=== PATIENT | female | born 1950 | race Caucasian/White ===

== ENCOUNTER 2018-08-19 22:13 | Emergency (ER) | payer OTHER ==
[2018-08-19] MEDS ORDERED: DIPHENHYDRAMINE 50 MG/ML VIAL ONE (23:46)
[2018-08-19] MEDS ORDERED: FAMOTIDINE 20 MG/2 ML VIAL IV ONE (23:46)
[2018-08-19] MEDS ORDERED: METHYLPREDNISOLONE 125 MG INJ ONE (23:46)
--- NOTE | 2018-08-20 00:34 | ER ---
Nurse's Notes [facility] Name: Janet Dash Age: 68 yrs Sex: Female : 1950 Arrival Date: 08/19/2018 Time: 22:18 Bed 19 Private MD: Diagnosis: Acute Allergic Reaction Presentation: 08/19 22:28 Presenting complaint: Patient states: approx 1900 this evening she began itching all aa1 over. Generalized erythema noted. Denies SOB. Transition of care: patient was not received from another setting of care. Onset of symptoms was August 19, 2018 at 19:00. Risk Assessment: Do you want to hurt yourself or someone else? Patient reports no desire to harm self or others. Initial Sepsis Screen: Does the patient meet any 2 criteria? No. Patient's initial sepsis screen is negative. Does the patient have a suspected source of infection? No. Patient's initial sepsis screen is negative. Care prior to arrival: None. 22:28 Method Of Arrival: Wheelchair aa1 22:28 Acuity: FEMI 4 aa1 22:28 Note Pt reports taking Benadryl 50 mg [employer] with some relief. aa1 Triage Assessment: 22:28 General: Appears in no apparent distress. comfortable, Behavior is calm, cooperative, aa1 appropriate for age. Pain: Denies pain. Historical: - Allergies: 22:31 No Known Allergies; aa1 - Home Meds: 22:31 lisinopril-hydrochlorothiazide oral oral [Active]; aa1 - PMHx: 22:31 Hypertension; aa1 - PSHx: 22:31 foot sx; aa1 - Immunization history:: Flu vaccine is up to date. - Social history:: Smoking status: Patient/guardian denies using tobacco. - Ebola Screening: : No symptoms or risks identified at this time. Screenin:46 Abuse screen: Denies threats or abuse. Nutritional screening: No deficits noted. jd3 Tuberculosis screening: No symptoms or risk factors identified. Fall Risk Ambulatory Aid- None/Bed Rest/Nurse Assist (0 pts). Gait- Normal/Bed Rest/Wheelchair (0 pts) Mental Status- Oriented to own ability (0 pts). Total Hillman Fall Scale indicates No Risk (0-24 pts). Assessment: 22:44 General: Appears in no apparent distress. uncomfortable, Behavior is cooperative, jd3 appropriate for age, anxious. Pain: Denies pain. Neuro: Level of Consciousness is awake, alert, obeys commands, Oriented to person, place, time, situation, Appropriate for age. Cardiovascular: Denies chest pain, Capillary refill < 3 seconds Patient's skin is warm and dry. Respiratory: Airway is patent Respiratory effort is even, unlabored, Respiratory pattern is regular, symmetrical, Breath sounds are clear bilaterally. Denies shortness of breath. GI: No signs and/or symptoms were reported involving the gastrointestinal system. : No signs and/or symptoms were reported regarding the genitourinary system. EENT: No signs and/or symptoms were reported regarding the EENT system. Derm: Skin is intact, Skin is dry, Skin is normal, Skin temperature is warm Rash noted that is itchy, red, on generalized. Musculoskeletal: Circulation, motion, and sensation intact. Range of motion: intact in all extremities. 08/20 00:29 Reassessment: Patient appears in no apparent distress at this time. Patient and/or jd3 family updated on plan of care and expected duration. Pain level reassessed. Patient is alert, oriented x 3, equal unlabored respirations, skin warm/dry/pink. decrease in redness noted Patient states feeling better. 00:47 Reassessment: Patient appears in no apparent distress at this time. Patient and/or jd3 family updated on plan of care and expected duration. Pain level reassessed. Patient is alert, oriented x 3, equal unlabored respirations, skin warm/dry/pink. Patient states feeling better. Vital Signs: 08/19 22:28 BP 173 / 104; Pulse 89; Resp 18; Temp 97.8; Pulse Ox 96% on R/A; Weight 77.11 kg; aa1 Height 5 ft. 9 in. (175.26 cm); Pain 0/10; 08/20 00:29 BP 164 / 96; Pulse 65; Resp 16 S; Pulse Ox 97% on R/A; jd3 08/19 22:28 Body Mass Index 25.10 (77.11 kg, 175.26 cm) aa1 ED Course: 08/19 22:18 Patient arrived in ED. am2 22:28 Arm band placed on right wrist. aa1 22:29 Triage completed. aa1 22:41 Irvin Patterson, RN is Primary Nurse. jd3 22:46 Patient has correct armband on for positive identification. Bed in low position. Call jd3 light in reach. Side rails up X 1. Adult w/ patient. 23:18 [facility]. jr8 23:18 Ton Hill MD is Attending Physician. jr8 23:40 Inserted saline lock: 20 gauge in right antecubital area, using aseptic technique. jd3 08/20 00:46 No provider procedures requiring assistance completed. IV discontinued, intact, jd3 bleeding controlled, No redness/swelling at site. Pressure dressing applied. Administered Medications: 08/19 23:52 Drug: SOLU-Medrol 125 mg Route: IVP; Site: right antecubital; jd3 08/20 00:47 Follow up: Response: No adverse reaction jd3 08/19 23:52 Drug: Pepcid 20 mg Route: IVP; Site: right antecubital; jd3 08/20 00:47 Follow up: Response: No adverse reaction jd3 08/19 23:52 Drug: Benadryl 25 mg Route: IVP; Site: right antecubital; jd3 08/20 00:48 Follow up: Response: No adverse reaction jd3 Outcome: 00:34 Discharge ordered by MD. jr8 00:46 Discharged to home ambulatory, with family. jd3 00:46 Condition: stable 00:46 Discharge instructions given to patient, family, Instructed on discharge instructions, follow up and referral plans. medication usage, Demonstrated understanding of instructions, follow-up care, medications, Prescriptions given X 2. 00:48 Patient left the ED. jd3 Signatures: Deidre Zuniga RN RN aa1 Ze Solano PA PA jr8 Sylvia Stuart am2 Irvin Patterson RN RN jd3
--- NOTE | 2018-08-20 00:34 | EDPHYS ---
Physician Documentation [facility] Name: Janet Dash Age: 68 yrs Sex: Female : 1950 Arrival Date: 08/19/2018 Time: 22:18 Bed 19 Private MD: ED Physician Ton Hill HPI: 08/19 23:52 This 68 yrs old Female presents to ER via Wheelchair with complaints of Rash. jr8 23:52 The patient's rash thought to be caused by an unknown cause. The rash is located on the jr8 body diffusely. The rash can be described as erythematous, urticarial. Onset: The symptoms/episode began/occurred acutely, today. Associated signs and symptoms: Pertinent positives: itching. Severity of symptoms: At their worst the symptoms were moderate in the emergency department the symptoms are unchanged. Treatment given at home: Benadryl. The patient has not experienced similar symptoms in the past. The patient has not recently seen a physician. Unknown why she started to have rash tonight. No new foods, clothes, soaps, detergents, jewelry, etc... started to have erythema and urticaria. Took Benadryl with minimal relief . Historical: - Allergies: 22:31 No Known Allergies; aa1 - Home Meds: 22:31 lisinopril-hydrochlorothiazide oral oral [Active]; aa1 - PMHx: 22:31 Hypertension; aa1 - PSHx: 22:31 foot sx; aa1 - Immunization history:: Flu vaccine is up to date. - Social history:: Smoking status: Patient/guardian denies using tobacco. - Ebola Screening: : No symptoms or risks identified at this time. ROS: 08/20 00:32 Eyes: Negative for injury, pain, redness, and discharge, ENT: Negative for injury, jr8 pain, and discharge, Neck: Negative for injury, pain, and swelling, Cardiovascular: Negative for chest pain, palpitations, and edema, Respiratory: Negative for shortness of breath, cough, wheezing, and pleuritic chest pain, Abdomen/GI: Negative for abdominal pain, nausea, vomiting, diarrhea, and constipation, Back: Negative for injury and pain, MS/Extremity: Negative for injury and deformity, Neuro: Negative for headache, weakness, numbness, tingling, and seizure. Skin: Positive for rash, diffusely. Exam: 00:32 Eyes: Pupils equal round and reactive to light, extra-ocular motions intact. Lids and jr8 lashes normal. Conjunctiva and sclera are non-icteric and not injected. Cornea within normal limits. Periorbital areas with no swelling, redness, or edema. ENT: Nares patent. No nasal discharge, no septal abnormalities noted. Tympanic membranes are normal and external auditory canals are clear. Oropharynx with no redness, swelling, or masses, exudates, or evidence of obstruction, uvula midline. Mucous membranes moist. Neck: Trachea midline, no thyromegaly or masses palpated, and no cervical lymphadenopathy. Supple, full range of motion without nuchal rigidity, or vertebral point tenderness. No Meningismus. Cardiovascular: Regular rate and rhythm with a normal S1 and S2. No gallops, murmurs, or rubs. Normal PMI, no JVD. No pulse deficits. Respiratory: Lungs have equal breath sounds bilaterally, clear to auscultation and percussion. No rales, rhonchi or wheezes noted. No increased work of breathing, no retractions or nasal flaring. Abdomen/GI: Soft, non-tender, with normal bowel sounds. No distension or tympany. No guarding or rebound. No evidence of tenderness throughout. Back: No spinal tenderness. No costovertebral tenderness. Full range of motion. MS/ Extremity: Pulses equal, no cyanosis. Neurovascular intact. Full, normal range of motion. Neuro: Awake and alert, GCS 15, oriented to person, place, time, and situation. Cranial nerves II-XII grossly intact. Motor strength 5/5 in all extremities. Sensory grossly intact. Cerebellar exam normal. Normal gait. 00:32 Skin: rash can be described as erythematous, urticarial, and is diffusely located. Vital Signs: 08/19 22:28 BP 173 / 104; Pulse 89; Resp 18; Temp 97.8; Pulse Ox 96% on R/A; Weight 77.11 kg; aa1 Height 5 ft. 9 in. (175.26 cm); Pain 0/10; 08/20 00:29 BP 164 / 96; Pulse 65; Resp 16 S; Pulse Ox 97% on R/A; jd3 08/19 22:28 Body Mass Index 25.10 (77.11 kg, 175.26 cm) aa1 MDM: 02/17 23:18 Patient medically screened. jr8 08/20 00:32 Data reviewed: vital signs, nurses notes, and as a result, I will discharge patient. jr8 Data interpreted: Pulse oximetry: on room air is 97 %. Interpretation: normal. Counseling: I had a detailed discussion with the patient and/or guardian regarding: the historical points, exam findings, and any diagnostic results supporting the discharge/admit diagnosis, the need for outpatient follow up, a family practitioner, to return to the emergency department if symptoms worsen or persist or if there are any questions or concerns that arise at home. 00:32 Response to treatment: the patient's symptoms have markedly improved after treatment. jr8 08/19 23:27 Order name: IV; Complete Time: :52 Administered Medications: 08/19 23:52 Drug: SOLU-Medrol 125 mg Route: IVP; Site: right antecubital; jd3 08/20 00:47 Follow up: Response: No adverse reaction jd3 08/19 23:52 Drug: Pepcid 20 mg Route: IVP; Site: right antecubital; jd3 08/20 00:47 Follow up: Response: No adverse reaction jd3 08/19 23:52 Drug: Benadryl 25 mg Route: IVP; Site: right antecubital; jd3 08/20 00:48 Follow up: Response: No adverse reaction jd3 Disposition: 02:44 Co-signature as Attending Physician, Ton Hill MD. [email or web address] Disposition: 08/20/18 00:34 Discharged to Home. Impression: Acute Allergic Reaction . - Condition is Stable. - Discharge Instructions: Anaphylactic Reaction, Adult. - Prescriptions for Prednisone 20 mg Oral Tablet - take 2 tablet by ORAL route once daily for 5 days; 10 tablet. Pepcid 20 mg Oral Tablet - take 1 tablet by ORAL route once daily for 5 days; 5 tablet. - Medication Reconciliation Form, Thank You Letter, Antibiotic Education, Prescription Opioid Use form. - Follow up: Private Physician; When: 2 - 3 days; Reason: Recheck today's complaints, Continuance of care, Re-evaluation by your physician. - Problem is new. - Symptoms have improved. Signatures: Deidre Zuniga RN RN aa1 Ton Hill MD MD pkl Ze Solano PA PA jr8 Irvin Patterson RN RN jd3 Corrections: (The following items were deleted from the chart) 00:48 00:34 08/20/2018 00:34 Discharged to Home. Impression: Acute Allergic Reaction . jd3 Condition is Stable. Forms are Medication Reconciliation Form, Thank You Letter, Antibiotic Education, Prescription Opioid Use. Follow up: Private Physician; When: 2 - 3 days; Reason: Recheck today's complaints, Continuance of care, Re-evaluation by your physician. Problem is new. Symptoms have improved. jr8
== END 2018-08-20 00:48 | disposition home or self-care (01) ==
LOC: ER 22:13
DX: T78.40XA Allergy, unspecified, initial encounter (principal); R21 Rash and other nonspecific skin eruption; I10 Essential (primary) hypertension
CPT/HCPCS: 96374; 96375; 99283; J2930